=== PATIENT | male | born 1950 | race Caucasian/White ===

== ENCOUNTER 2018-07-02 19:27 | Observation (INO) ==
[2018-07-02] MEDS ORDERED: Pantoprazole Inj 40 MG Vial IV.PUSH ONE (20:03)
[2018-07-02] MEDS ORDERED: Sod Chloride 0.9% Inj 1,000 ML IV.SIG ONE (20:03)
--- NOTE | 2018-07-02 20:17 | ED ---
HPI General Chief complaint: Nausea/Vomiting/Diarrhea Stated complaint: vomitting Time Seen by Provider: 07/02/18 19:54 Source: patient and RN notes reviewed Mode of arrival: ambulatory Limitations: no limitations History of Present Illness HPI Narrative: 68-year-old male presents to the emergency department for evaluation of vomiting. Patient states he went out to eat with his daughter who he has not seen for several years. He was eating a blooming onion and steak and felt back when his symptoms occurred. He states that he felt like he got food stuck in his throat and was able to get it up. However, since then, he has been vomiting innumerable times. Patient reports associated midsternal pain. Current pain is 5/10. Patient reports history of hypertension, A. fib status post cardiac ablation. Takes metoprolol, aspirin, Celebrex. Patient denies any abdominal pain. No diarrhea or constipation. Moderate severity. MD complaint: Reports vomiting Onset (ago): hour(s) Description of Vomiting: watery Description of Diarrhea: none Associated Abdominal Pain: No Severity: moderate Severity scale (1-10): 5 Pain Consistency: constant Relieving factors: none Exacerbating factors: none Associated symptoms: Reports chest pain and nausea/vomiting; Denies myalgias, cough, diaphoresis, fever/chills, headaches, loss of appetite, malaise, rash, dysuria, shortness of breath, syncope, weakness, decreased urine output, fecal incontinence, tenesmus, altered mental status, anxiety, fatigue, bloating, numbness, tinnitus, palpitation and change in vision Related Data Home Medications Medication Instructions Recorded Confirmed aspirin [Aspir-81] 81 mg PO DAILY 07/02/18 07/02/18 celecoxib [Celebrex] 200 mg PO BID 07/02/18 07/02/18 metoprolol tartrate 50 mg PO BID 07/02/18 07/02/18 Allergies Allergy/AdvReac Type Severity Reaction Status Date / Time No Known Allergies Allergy Verified 07/02/18 19:40 Review of Systems ROS: all other systems reviewed are negative [facility] Social History Social History Substance History: No History of Abuse Second Hand Smoke Exposure: No Smoking Status: Never smoker How Often Do You Have a Drink Containing Alcohol: Never Recent Travel in [facility] within the Last 8 Weeks: No Recent Out of Country Travel within the Last 8 Weeks: No Immunization History Tetanus Immunization: <5 Years Exam Narrative Exam Narrative: GENERAL: Well-nourished, well-developed male patient, afebrile SKIN: Focused skin assessment warm/dry. HEAD: Normocephalic. Atraumatic EYES: No scleral icterus. No injection or drainage. NECK: Supple, trachea midline. No JVD or lymphadenopathy. CARDIOVASCULAR: Regular rate and rhythm without murmurs, gallops, or rubs. RESPIRATORY: Breath sounds equal bilaterally. No accessory muscle use. Lung sounds are clear to auscultation GASTROINTESTINAL: Abdomen soft, non-tender, nondistended. MUSCULOSKELETAL: No cyanosis, or edema. BACK: Nontender without obvious deformity. No CVA tenderness. Course Initial Documented Vital Signs Temperature 98.2 F 07/02/18 19:40 Pulse Rate 82 07/02/18 19:40 Respiratory Rate 23 07/02/18 19:40 Blood Pressure 170/99 H 07/02/18 19:40 Pulse Oximetry 98 07/02/18 19:40 Last Documented Vital Signs Temperature 97.4 F L 07/03/18 12:00 Pulse Rate 78 07/03/18 12:00 Respiratory Rate 16 07/03/18 12:00 Blood Pressure 120/77 07/03/18 12:00 Pulse Oximetry 96 07/03/18 12:00 Medical Decision Making DARIN Attestation DARIN supervised visit: Yes Attestation: I, Dr. Leyva, have reviewed the advance practice practitioner's documentation and am in agreement, met with the patient face to face, made the diagnosis, and the medical decision making was done by me. *My assessment and Findings: Esophageal food bolus obstruction MDM Narrative Medical decision making narrative: 68-year-old male presents to the emergency department for evaluation for innumerable episodes of vomiting after getting food stuck in his throat. Patient states he has had this happen before, but usually resolves by now. IV access obtained. EKG, CBC, CMP, magnesium, CK, troponin, chest x-ray are ordered and pending. Patient is given normal saline 1 L IV bolus, Zofran 4 mg IV, Protonix 40 mg IV, glucagon 2 mg IV. EKG shows sinus rhythm, heart rate 79, no acute ST changes. CBC shows no acute abnormality. CMP shows no acute abnormality. Magnesium is 1.9. CK is 65. Troponin is less than 0.02. Chest x-ray showsn o acute abnormality or significant interval change. I gave the patient some water after above meds. However, he immediately vomited it up. Exam is consistent with esophageal food bolus obstruction. GI is paged. I spoke to ANSON Haddad, who would like patient to be admitted, remain n.p.o. and he will scope the patient in the morning. Medical Screen Exam Complete: Yes Emergency Medical Condition: Yes Differential Diagnosis Differential Diagnosis: esophageal obstruction vs. GERD vs. gastroenteritis vs. dehydration vs. ACS Medical Records Medical records reviewed: Yes I reviewed the patient's medical records. Lab Data Result diagrams: 07/02/18 20:19 07/02/18 20:19 Lab Results 07/02/18 07/02/18 Range/Units 20:19 20:19 WBC 6.4 (4.0-11.0) th/mm3 RBC 5.47 (4.50-5.90) mil/mm3 Hgb 17.0 (13.0-17.0) gm/dL Hct 45.9 (39.0-51.0) % MCV 83.9 (80.0-100.0) fL MCH 31.1 (27.0-34.0) pg MCHC 37.1 H (32.0-36.0) % RDW 13.9 (11.6-17.2) % Plt Count 160 (150-450) th/mm3 MPV 7.9 (7.0-11.0) fL Prelim Diff (Auto) Slide review pending Neut % (Auto) 72.3 H (16.0-70.0) % Lymph % (Auto) 17.0 (9.0-44.0) % Jefferson % (Auto) 7.6 (0.0-8.0) % Eos % (Auto) 2.7 (0.0-4.0) % Baso % (Auto) 0.4 (0.0-2.0) % Neut # (Auto) 4.6 (1.8-7.7) th/mm3 Lymph # (Auto) 1.1 (1.0-4.8) th/mm3 Jefferson # (Auto) 0.5 (0.0-0.9) th/mm3 Eos # (Auto) 0.2 (0.0-0.4) th/mm3 Baso # (Auto) 0.0 (0.0-0.2) th/mm3 WBC Differential . Diff Scan Auto diff confirmed Differential Comment . Sodium 138 (136-145) meq/L Potassium 4.2 (3.5-5.1) meq/L Chloride 106 (98-107) meq/L Carbon Dioxide 27.2 (21.0-32.0) meq/L Anion Gap 5 (5-15) meq/L BUN 16 (7-18) mg/dL Creatinine 0.87 (0.60-1.30) mg/dL Estimated GFR 88 L (>89) mL/min Random Glucose 115 H (74-106) mg/dL Calcium 9.0 (8.5-10.1) mg/dL Magnesium 1.9 (1.5-2.5) mg/dL Total Bilirubin 3.0 H (0.2-1.0) mg/dL AST 21 (15-37) U/L ALT 27 (12-78) U/L Alkaline Phosphatase 81 (45-117) U/L Total Creatine Kinase 65 (39-308) U/L Troponin I Less than 0.02 L (0.02-0.05) ng/mL Total Protein 7.5 (6.4-8.2) g/dL Albumin 4.2 (3.4-5.0) g/dL Lipase 49 L (73-393) U/L Imaging Data Radiologist's impression: Chest X-Ray 07/02/18 20:03 CONCLUSION: 1. No acute abnormality or significant interval change. Discharge Plan Discharge Disposition Patient Disposition: 30 Still Patient Discharge Condition Condition: Stable Discharge Order Discharge Orders: Discharge Order (Routine); Ordered 07/03/18 Ordered By: Ligia Bonds ED Use Only Admit Order (Routine); Ordered 07/02/18 Ordered By: Estelle Ortiz Discharge Details Diagnosis: Acute esophageal obstruction Physicians Team ED Provider: Bhupendra Leyva ED Midlevel Provider: Estelle Ortiz Primary Care Provider: Ben Maxwell V Attending Provider: Lacie Escobar Other Providers: Souleymane Comer ; Roderick Sanabria V Status ED Status: Left Department Discharge Information Discharge Date/Time: 07/02/18 23:30
--- NOTE | 2018-07-02 20:26 | XR ---
EXAM DATE: 07/02/2018 8:21 PM EST AGE/SEX: 68 years / Male INDICATIONS: Chest pressure CLINICAL DATA: This is the patient's initial encounter. Patient reports that signs and symptoms have been present for 1 day and indicates a pain score of 0/10. MEDICAL/SURGICAL HISTORY: None. None. COMPARISON: [facility], CHEST SINGLE AP, 02/20/2016. . FINDINGS: No significant new focal pleural or parenchymal opacities. The cardiomediastinal contours are unremar kable. Osseous structures are intact. CONCLUSION: 1. No acute abnormality or significant interval change. Electronically signed by: Ed Covarrubias MD 07/02/2018 8:24 PM EST
[2018-07-02 20:28] LABS: Baso % (Auto) 0.4 % (0.0-2.0); Eos # (Auto) 0.2 th/mm3 (0.0-0.4); Eos % (Auto) 2.7 % (0.0-4.0); Hematocrit 45.9 % (39.0-51.0); Lymph # (Auto) 1.1 th/mm3 (1.0-4.8); Mean Corpuscular Hemoglobin 31.1 pg (27.0-34.0); Mean Corpuscular Volume 83.9 fL (80.0-100.0); Mean Platelet Volume 7.9 fL (7.0-11.0); Mono # (Auto) 0.5 th/mm3 (0.0-0.9); Mono % (Auto) 7.6 % (0.0-8.0); Neut # (Auto) 4.6 th/mm3 (1.8-7.7); Neut % (Auto) 72.3 % (16.0-70.0); Platelet Count 160 th/mm3 (150-450); Red Blood Count 5.47 mil/mm3 (4.50-5.90); Red Cell Distribution Width 13.9 % (11.6-17.2); White Blood Count 6.4 th/mm3 (4.0-11.0)
[2018-07-02 20:39] LABS: Mean Corpuscular HGB Conc 37.1 % (32.0-36.0)
[2018-07-02 20:57] LABS: Albumin 4.2 g/dL (3.4-5.0); Anion Gap 5 meq/L (5-15); Aspartate Aminotransferase 21 U/L (15-37); Blood Urea Nitrogen 16 mg/dL (7-18); Carbon Dioxide 27.2 meq/L (21.0-32.0); Chloride 106 meq/L (98-107); Glomerular Filtration Rate 88 mL/min (>89); Glucose,Random 115 mg/dL (74-106); Lipase 49 U/L (73-393); Magnesium 1.9 mg/dL (1.5-2.5); Potassium 4.2 meq/L (3.5-5.1); Sodium 138 meq/L (136-145)
[2018-07-02 20:58] LABS: Alanine Aminotransferase 27 U/L (12-78)
[2018-07-02 21:02] LABS: Alkaline Phosphatase 81 U/L (45-117); Total Protein 7.5 g/dL (6.4-8.2)
[2018-07-02 21:08] LABS: Creatine Kinase 65 U/L (39-308)
[2018-07-02] MEDS ORDERED: Bisacodyl 10 MG Supp RECTAL PRN (22:34)
[2018-07-02] MEDS ORDERED: Morphine Sulfate Inj 2 MG/ML Vial IV.PUSH PRN (22:34)
--- NOTE | 2018-07-02 22:35 | P.HPIM ---
History of Present Illness Primary Care Physician: Ben Maxwell MD History of Present Illness: This is a 68-year-old male with a PMH of HTN and A. fib s/p Ablation who presented to the ER w/ c/o vomiting after having dinner. [facility] had steak and a blooming onion, followed by sensation of something stuck in his throat, has had ongoing nausea/vomiting since then w/ no relief. Reports h/o similar symptoms which usually resolve after few episodes of vomiting. On arrival, BP 170/99, HR 82, O2 sat 98% on RA , Afebrile. Chemistry unremarkable except for GFR 88. Troponin negative. CXR with no acute findings. Dr. Wisdom consulted, plan is for EGD in am. - Diagnosis (1) Acute esophageal obstruction (2) Intractable nausea and vomiting Review of Systems PAST FAMILY HISTORY: Reviewed. No h/o DM or CAD All other systems reviewed negative except as stated in HPI PMFSH - History History Provided By: Patient - Medical History Medical History: Medical History (Last Reviewed 07/02/18 @ 19:53 by Queta Bonds) Arthritis Hypertension - Surgical History Surgical History: Surgical History (Last Reviewed 07/02/18 @ 19:53 by Queta Bonds) S/P ablation of atrial fibrillation - Tobacco History Smoking Status: Never smoker - Alcohol History How Often Do You Have a Drink Containing Alcohol: Never - Substance Use History Substance History: No History of Abuse - Substance Use Type Alcohol Status: Sustained Remission - Travel History Recent Travel in the [place] Within the Last 8 Weeks: No Recent Travel Out of the Country Within the Last 8 Weeks: No - Immunization History Tetanus Immunization: <5 Years Medications and Allergies Active Medications: Active Medications Sodium Chloride (Ns Flush) 2 ml IV.FLUSH UNSCH PRN PRN Reason: FLUSH AFTER USING IV ACCESS Allergies Allergy/AdvReac Type Severity Reaction Status Date / Time No Known Allergies Allergy Verified 07/02/18 19:40 Home Medications Medication Instructions Recorded Confirmed Type aspirin [Aspir-81] 81 mg PO DAILY 07/02/18 07/02/18 History celecoxib [Celebrex] 200 mg PO BID 07/02/18 07/02/18 History metoprolol tartrate 50 mg PO BID 07/02/18 07/02/18 History Exam Vital signs: Vital Signs 07/02/18 19:40 07/02/18 20:44 07/02/18 20:45 Temperature 98.2 F Pulse Rate 82 Respiratory Rate 23 Blood Pressure 170/99 H 158/98 H Pulse Oximetry 98 98 Intake & Output 07/02/18 07/02/18 07/03/18 06:59 18:59 06:59 Weight 120.202 kg Narrative: PE: GENERAL: Extremely pleasant middle-aged white male in no acute distress. at bedside. SKIN: Focused skin assessment warm and dry. HEENT: PERRLA, EOMI. No scleral icterus or conjunctival pallor. No lid lag or facial droop. CARDIOVASCULAR: Regular rate and rhythm. No obvious murmurs to auscultation. No chest tenderness to palpation. RESPIRATORY: No obvious rhonchi or wheezing. Clear to auscultation. Breath sounds equal bilaterally. GASTROINTESTINAL: Abdomen soft, non-tender, nondistended. BS normal. MUSCULOSKELETAL: Extremities without clubbing, cyanosis, or edema. No obvious deformities. NEUROLOGICAL: Awake, alert and oriented x4. No focal neurologic deficits. Moving both upper and lower extremities spontaneously. PSYCHIATRIC: Appropriate mood and affect. Insight and judgment normal. Results - Labs CBC & Chem 7: 07/02/18 20:19 07/02/18 20:19 Labs: Short CBC 07/02/18 Range/Units 20:19 WBC 6.4 (4.0-11.0) th/mm3 Hgb 17.0 (13.0-17.0) gm/dL Hct 45.9 (39.0-51.0) % Plt Count 160 (150-450) th/mm3 [facility] 07/02/18 20:19 Sodium 138 Potassium 4.2 Chloride 106 Carbon Dioxide 27.2 BUN 16 Creatinine 0.87 Calcium 9.0 Cardiac Enzymes 07/02/18 Range/Units 20:19 Total Creatine Kinase 65 (39-308) U/L Troponin I Less than 0.02 L (0.02-0.05) ng/mL Liver Function 07/02/18 Range/Units 20:19 Total Bilirubin 3.0 H (0.2-1.0) mg/dL AST 21 (15-37) U/L ALT 27 (12-78) U/L Alkaline Phosphatase 81 (45-117) U/L Albumin 4.2 (3.4-5.0) g/dL - Imaging Impressions Chest X-Ray 07/02/18 20:03 CONCLUSION: 1. No acute abnormality or significant interval change. Caprini VTE Risk Assessment Caprini VTE Risk Assessment: No/Low Risk (score <= 1) Caprini Risk Assessment Model: Point Value = 1 Point Value = 2 Point Value = 3 Point Value = 5 Age 41-60 Minor surgery BMI > 25 kg/m2 Swollen legs Varicose veins or History of unexplained or recurrent spontaneous Oral contraceptives or hormone replacement Sepsis (< 1 month) Serious lung disease, including pneumonia (< 1 month) Abnormal pulmonary function Acute myocardial infarction Congestive heart failure (< 1 month) History of inflammatory bowel disease Medical patient at bed rest Age 61-74 Arthroscopic surgery Major open surgery (> 45 min) Laparoscopic surgery (> 45 min) Malignancy Confined to bed (> 72 hours) Immobilizing plaster cast Central venous access Age >= 75 History of VTE Family history of VTE Factor V Leiden Prothrombin [id number] Lupus anticoagulant Anticardiolipin antibodies Elevated serum homocysteine Heparin-induced thrombocytopenia Other congenital or acquired thrombophilia Stroke (< 1 month) Elective arthroplasty Hip, pelvis, or leg fracture Acute spinal cord injury (< 1 month) Prophylaxis Regimen: Total Risk Factor Score Risk Level Prophylaxis Regimen 0-1 Low Early ambulation 2 Moderate Order ONE of the following: *Sequential Compression Device (SCD) *Heparin 5000 units SQ BID 3-4 Higher Order ONE of the following medications: *Heparin 5000 units SQ TID *Enoxaparin/Lovenox 40 mg SQ daily (WT < 150 kg, CrCl > 30 mL/min) *Enoxaparin/Lovenox 30 mg SQ daily (WT < 150 kg, CrCl > 10-29 mL/min) *Enoxaparin/Lovenox 30 mg SQ BID (WT < 150 kg, CrCl > 30 mL/min) AND/OR *Sequential Compression Device (SCD) 5 or more Highest Order ONE of the following medications: *Heparin 5000 units SQ TID (Preferred with Epidurals) *Enoxaparin/Lovenox 40 mg SQ daily (WT < 150 kg, CrCl > 30 mL/min) *Enoxaparin/Lovenox 30 mg SQ daily (WT < 150 kg, CrCl > 10-29 mL/min) *Enoxaparin/Lovenox 30 mg SQ BID (WT < 150 kg, CrCl > 30 mL/min) AND *Sequential Compression Device (SCD) Assessment and Plan - Assessment (1) Acute esophageal obstruction Code(s): K22.2 - Esophageal obstruction Status: Acute (2) Intractable nausea and vomiting Code(s): R11.2 - Nausea with vomiting, unspecified Status: Acute - Plan A/P: 1. Acute Esophageal Obstruction: from food bolus following meal, h/o similar symptoms in the past however reports episodes usually resolve after vomiting. Dr. Wisdom consulted, plan is for EGD in am, NPO, IVF, antiemetics as needed. 2. Intractable NV: secondary to above, s/p Zofran in ER, will add Compazine, NPO. 3. DVT Prophylaxis: SCD/Teds 4. Social work for d/c planning as needed. 5. Case discussed w/ ER physician at length, labs/records/imaging reviewed by me.
[2018-07-02] MEDS: Sod Chloride 0.9% Inj 1,000 ML IV.CONT SCH (23:33)
[2018-07-03] MEDS ORDERED: Senna/Docusate Sodium 8.6/50 MG Tablet PO SCH (09:00)
--- NOTE | 2018-07-03 09:28 | P.CONGI ---
History of Present Illness Consult date: 07/03/18 Consult reason: Dysphagia food bolus Chief complaint: dysphagia, food bolus History of Present Illness: This patient is a 68-year-old male with past medical history of hypertension and atrial fibrillation. Patient presented to the ER at [facility] complaint of vomiting after having dinner. Upon consultation, patient states that he had 2 recent episodes of difficulty swallowing solid foods. On Tuesday patient states that bread felt stuck in his throat after eating a sandwich and more recently on Tuesday patient reported eating at a restaurant. On Tuesday patient states he ate fried onions with salad and steak. After having a few pieces of food he states he started gasping. Patient states he went to the bathroom and started vomiting. At this time he is able to speak clearly in complete sentences, swallow saliva. Patient states similar episode 20 years ago where he underwent an EGD after eating a hotdog. Patient denies ever having had a colonoscopy in the past and states he has regular bowel movements with no bleeding. Patient denies use of tobacco or alcohol products. States family history significant for his mother having esophageal spasms. Our service has been consulted to evaluate patient for esophageal food bolus. Review of Systems All other systems reviewed negative except as stated in HPI PMFSH - History History Provided By: Patient - Medical History Medical History: Medical History (Last Reviewed 07/02/18 @ 19:53 by Queta Bonds) Arthritis Hypertension - Surgical History Surgical History: Surgical History (Last Reviewed 07/02/18 @ 19:53 by Queta Bonds) S/P ablation of atrial fibrillation - Tobacco History Second Hand Smoke Exposure: No Smoking Status: Never smoker - Alcohol History How Often Do You Have a Drink Containing Alcohol: Never - Substance Use History Substance History: No History of Abuse - Substance Use Type Alcohol Status: Sustained Remission - Travel History Recent Travel in the [place] Within the Last 8 Weeks: No Recent Travel Out of the Country Within the Last 8 Weeks: No - Immunization History Tetanus Immunization: <5 Years Medications and Allergies Active Medications: Active Medications Al Hydroxide/Mg Hydroxide (Milk Of Magnesia Liq) 30 ml PO Q12H PRN PRN Reason: Mild Constipation Bisacodyl (Dulcolax Supp) 10 mg RECTAL DAILY PRN PRN Reason: SEVERE CONSITIPATION Sodium Chloride (Ns Inj) 1,000 mls @ 100 mls/hr IV.CONT .Q10H [facility] Last Admin: 07/02/18 23:33 Dose: 100 mls/hr Lactulose (Lactulose Liq) 30 ml PO DAILY PRN PRN Reason: SEVERE CONSITIPATION Morphine Sulfate (Morphine Inj) 2 mg IV.PUSH Q4H PRN PRN Reason: PAIN 6-10 Ondansetron HCl (Zofran Inj) 4 mg IV.PUSH Q6H PRN PRN Reason: NAUSEA OR VOMITING Prochlorperazine Edisylate (Compazine Inj) 10 mg IV.PUSH Q6H PRN PRN Reason: NAUSEA/VOMITING Last Admin: 07/02/18 23:30 Dose: 10 mg Senna/Docusate Sodium (Olivia-Colace) 1 tab PO BID [facility] Last Admin: 07/03/18 09:06 Dose: Not Given Sennosides (Senokot) 17.2 mg PO Q12H PRN PRN Reason: Moderate Constipation Sodium Chloride (Ns Flush) 2 ml IV.FLUSH BID [facility] Last Admin: 07/03/18 09:06 Dose: Not Given Sodium Chloride (Ns Flush) 2 ml IV.FLUSH PRN PRN PRN Reason: FLUSH AFTER USING IV ACCESS Allergies Allergy/AdvReac Type Severity Reaction Status Date / Time No Known Allergies Allergy Verified 07/02/18 19:40 Home Medications Medication Instructions Recorded Confirmed Type aspirin [Aspir-81] 81 mg PO DAILY 07/02/18 07/02/18 History celecoxib [Celebrex] 200 mg PO BID 07/02/18 07/02/18 History metoprolol tartrate 50 mg PO BID 07/02/18 07/02/18 History Exam Vital signs: Vital Signs 07/02/18 19:40 07/02/18 20:44 07/02/18 20:45 Temperature 98.2 F Pulse Rate 82 Respiratory Rate 23 Blood Pressure 170/99 H 158/98 H Pulse Oximetry 98 98 07/02/18 23:58 07/03/18 04:00 07/03/18 08:00 Temperature 98.4 F 98.0 F 96.8 F L Pulse Rate 80 71 78 Respiratory Rate 16 16 16 Blood Pressure 134/83 126/79 124/85 Pulse Oximetry 96 95 98 Intake & Output 07/02/18 07/03/18 07/03/18 18:59 06:59 18:59 Intake Total 1000 / 1000 Output Total 0 / 0 Balance 1000 / 1000 Weight 117.934 kg Intake: IV 1000 / 1000 NS Inj 1,000 ML @ Wide Open IV. 1000 / 1000 SIG BOLUS ONE Rx#:[id number] Oral 0 / 0 Output: Urine 0 / 0 Other: Date of Last Bowel Movement 07/02/18 Weight On Admission 120.202 kg - Constitutional no acute distress - Routine HEENT Exam Head: Present: normocephalic - Routine Neck Exam Present: supple - Routine Respiratory Exam Present: CTA bilaterally. Absent: accessory muscle use - Routine Abdominal Exam Present: soft, normoactive bowel sounds. Absent: tenderness, distended, guarding, firm - Routine Skin Exam Present: dry, warm - Routine Neurological Exam Present: alert - Routine Psychiatric Exam Present: normal affect, cooperative Results - Labs CBC & Chem 7: 07/02/18 20:19 07/02/18 20:19 Labs: Laboratory Results - last 24 hr 07/02/18 07/02/18 20:19 20:19 WBC 6.4 RBC 5.47 Hgb 17.0 Hct 45.9 MCV 83.9 MCH 31.1 MCHC 37.1 H RDW 13.9 Plt Count 160 MPV 7.9 Prelim Diff (Auto) Slide review pending Neut % (Auto) 72.3 H Lymph % (Auto) 17.0 Tift % (Auto) 7.6 Eos % (Auto) 2.7 Baso % (Auto) 0.4 Neut # (Auto) 4.6 Lymph # (Auto) 1.1 Tift # (Auto) 0.5 Eos # (Auto) 0.2 Baso # (Auto) 0.0 WBC Differential . Diff Scan Auto diff confirmed Differential Comment . Sodium 138 Potassium 4.2 Chloride 106 Carbon Dioxide 27.2 Anion Gap 5 BUN 16 Creatinine 0.87 Estimated GFR 88 L Random Glucose 115 H Calcium 9.0 Magnesium 1.9 Total Bilirubin 3.0 H AST 21 ALT 27 Alkaline Phosphatase 81 Total Creatine Kinase 65 Troponin I Less than 0.02 L Total Protein 7.5 Albumin 4.2 Lipase 49 L - Imaging Impressions Chest X-Ray 07/02/18 20:03 CONCLUSION: 1. No acute abnormality or significant interval change. Assessment and Plan (1) Acute esophageal obstruction Status: Acute Code(s): K22.2 - Esophageal obstruction - Plan This patient is a 68-year-old male with past medical history of hypertension and atrial fibrillation. Patient presented to the ER at [facility] complaint of vomiting after having dinner. Upon consultation, patient states that he had 2 recent episodes of difficulty swallowing solid foods. On Tuesday patient states that bread felt stuck in his throat after eating a sandwich and more recently on Tuesday patient reported eating at a restaurant. On Tuesday patient states he ate fried onions with salad and steak. After having a few pieces of food he states he started gasping. Patient states he went to the bathroom and started vomiting. At this time he is able to speak clearly in complete sentences, swallow saliva. Patient states similar episode 20 years ago where he underwent an EGD after eating a hotdog. Patient denies ever having had a colonoscopy in the past and states he has regular bowel movements with no bleeding. Patient denies use of tobacco or alcohol products. States family history significant for his mother having esophageal spasms. Our service has been consulted to evaluate patient for esophageal food bolus. Esophageal food bolus Difficulty swallowing Patient endorses 2 recent episodes of difficulty swallowing with possible esophageal food bolus. Most recently Tuesday patient states he was eating steak , fried onions and salad when he is began to gasp. Patient states he attempted multiple episodes of vomiting to clear food. On consultation, patient able to speak in complete sentences and swallow saliva. No respiratory distress. Plan -Consent obtained for EGD -EGD today -Encourage patient to chew food slowly -Encourage patient to take small bites -Supportive care -Further recommendations to follow based on patient's status and findings This patient has been seen by myself and Dr. Sanabria and this note is written on his behalf - Attending Attestation Dr. Sanabria
[2018-07-03] MEDS: Sod Chloride 0.9% Inj 1,000 ML IV.CONT SCH (09:29)
[2018-07-03] MEDS ORDERED: Sodium Chlor 0.9% Inj 500 ML IV.CONT ONE (10:15)
[2018-07-03] MEDS ORDERED: Chlorhexidine Gluconate 2% 1 Pack (2 Cloths) TOPICAL ONE (10:15)
[2018-07-03] MEDS ORDERED: Metoprolol Tartrate 25 MG Tablet PO ONE (10:15)
[2018-07-03] MEDS ORDERED: Succinylcholine Inj 100 MG/5 ML Syringe IV.PUSH ONE (10:27)
[2018-07-03] MEDS ORDERED: Lidocaine PF 1% Inj 5 ML Syringe OTHER ONE (10:27)
--- NOTE | 2018-07-03 10:46 | GIPROC ---
[facility] [address] [facility]. [facility], [address] EGD PROCEDURE REPORT EXAM DATE: 07/03/2018 PATIENT NAME: Emery Gordillo MR #: [id number] BIRTHDATE: 1950 ATTENDING: Roderick Sanabria MD ORDER #: [id number] [employer]CH[employer]IC TIN CANS: Destiney Flores and Margaret Hamlin STATUS: inpatient INDICATIONS: The patient is a 68 yr old male here for an EGD due to dysphagia and FB stuck in the chest PROCEDURE PERFORMED: EGD, diagnostic MEDICATIONS: Per Anesthesia and None. TOPICAL ANESTHETIC: none CONSENT: The patient understands the risks and benefits of the procedure and understands that these risks include, but are not limited to: sedation, allergic reaction, infection, perforation and/or bleeding. Alternative means of evaluation and treatment include, among others: physical exam, x-rays, and/or surgical intervention. The patient elects to proceed with this endoscopic procedure. medical equipment was checked for proper function. Hand hygiene and appropriate measures for infection prevention was taken. After the risks, benefits and alternatives of the procedure were thoroughly explained, Informed consent was verified, confirmed and timeout was successfully executed by the treatment team. The patient was anesthetized with topical anesthesia and the Pentax EG-[id number] endoscope was introduced through the mouth and advanced to the second portion of the duodenum. Retroflexed views revealed no abnormalities The gastroscope was then slowly withdrawn and removed. ESOPHAGUS: There was LA Class C esophagitis noted. 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 The stricture was traversable. ADVERSE EVENTS: There were no complications. IMPRESSIONS: 1. There was LA Class C esophagitis noted 2. 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 Retroflexed views revealed no abnormalities RECOMMENDATIONS: Continue PPI PATIENT CONDITION: stable DISPOSITION: Inpatient REPEAT EXAM: Return as needed for EGD with dilatation in 2- weeks as outpatient Roderick Sanabria MD eSigned: Roderick Sanabria MD 07/03/2018 10:46 AM cc: PATIENT NAME: Emery Gordillo MR#: [id number]
[2018-07-03 11:33] VITALS: O2SAT 96
[2018-07-03] MEDS ORDERED: fentaNYL Citrate Inj 100 MCG/2 ML Ampul ONE (12:25)
[2018-07-03 12:47] VITALS: BP 120/77; PULSE 78; RESP 16; TEMP 97.4
--- NOTE | 2018-07-03 14:19 | P.PN ---
Subjective Interval history: Patient is seen lying in bed. He has scheduled EGD today. Tells me that he has not had any trouble swallowing saliva and his nausea and vomiting has subsided. Currently n.p.o. Denies any history of stricture but has had EGD for similar problem in past. Physical Exam Vital signs: Vital Signs 07/02/18 19:40 07/02/18 20:44 07/02/18 20:45 Temperature 98.2 F Pulse Rate 82 Respiratory Rate 23 Blood Pressure 170/99 H 158/98 H Pulse Oximetry 98 98 07/02/18 23:58 07/03/18 04:00 07/03/18 08:00 Temperature 98.4 F 98.0 F 96.8 F L Pulse Rate 80 71 78 Respiratory Rate 16 16 16 Blood Pressure 134/83 126/79 124/85 Pulse Oximetry 96 95 98 07/03/18 10:50 07/03/18 11:00 07/03/18 11:05 Temperature 98.1 F Pulse Rate 82 81 Respiratory Rate 17 18 Blood Pressure 135/94 H 111/77 Pulse Oximetry 95 96 96 07/03/18 11:15 07/03/18 11:30 07/03/18 11:45 Temperature 98.1 F Pulse Rate 77 78 76 Respiratory Rate 18 19 18 Blood Pressure 115/78 114/78 117/80 Pulse Oximetry 97 96 96 07/03/18 12:00 Temperature 97.4 F L Pulse Rate 78 Respiratory Rate 16 Blood Pressure 120/77 Pulse Oximetry 96 Intake & Output 07/02/18 07/03/18 07/03/18 18:59 06:59 18:59 Intake Total 1000 / 1000 800 / 800 Output Total 0 / 0 Balance 1000 / 1000 800 / 800 Weight 117.934 kg Intake: IV 1000 / 1000 NS Inj 1,000 ML @ Wide Open IV. 1000 / 1000 SIG BOLUS ONE Rx#:[id number] Oral 0 / 0 Anesthesia Amount 800 / 800 Output: Urine 0 / 0 Other: Date of Last Bowel Movement 07/02/18 07/02/18 Weight On Admission 120.202 kg Narrative: GENERAL: Well-nourished, well-developed adult male in no obvious distress. SKIN: Warm and dry. HEAD: Atraumatic. Normocephalic. CARDIOVASCULAR: Regular rate and rhythm. RESPIRATORY: No accessory muscle use. Clear to auscultation. Breath sounds equal bilaterally. GASTROINTESTINAL: Abdomen soft, non-tender, non-distended. Positive bowel sounds. MUSCULOSKELETAL: Extremities without clubbing, cyanosis, or edema. No obvious deformities. NEUROLOGICAL: Awake and alert. No obvious cranial nerve deficits. Motor grossly within normal limits. Normal speech. PSYCHIATRIC: Appropriate mood and affect; insight and judgment good. Results - Labs CBC & Chem 7: 07/02/18 20:19 07/02/18 20:19 Laboratory Results - last 24 hr 07/02/18 07/02/18 20:19 20:19 WBC 6.4 RBC 5.47 Hgb 17.0 Hct 45.9 MCV 83.9 MCH 31.1 MCHC 37.1 H RDW 13.9 Plt Count 160 MPV 7.9 Prelim Diff (Auto) Slide review pending Neut % (Auto) 72.3 H Lymph % (Auto) 17.0 [place] % (Auto) 7.6 Eos % (Auto) 2.7 Baso % (Auto) 0.4 Neut # (Auto) 4.6 Lymph # (Auto) 1.1 [place] # (Auto) 0.5 Eos # (Auto) 0.2 Baso # (Auto) 0.0 WBC Differential . Diff Scan Auto diff confirmed Differential Comment . Sodium 138 Potassium 4.2 Chloride 106 Carbon Dioxide 27.2 Anion Gap 5 BUN 16 Creatinine 0.87 Estimated GFR 88 L Random Glucose 115 H Calcium 9.0 Magnesium 1.9 Total Bilirubin 3.0 H AST 21 ALT 27 Alkaline Phosphatase 81 Total Creatine Kinase 65 Troponin I Less than 0.02 L Total Protein 7.5 Albumin 4.2 Lipase 49 L - Imaging Impressions Chest X-Ray 07/02/18 20:03 CONCLUSION: 1. No acute abnormality or significant interval change. Assessment and Plan - Assessment (1) Acute esophageal obstruction Code(s): K22.2 - Esophageal obstruction Status: Acute (2) Intractable nausea and vomiting Code(s): R11.2 - Nausea with vomiting, unspecified Status: Acute - Plan A/P: 1. Acute Esophageal Obstruction: from food bolus following meal, h/o similar symptoms in the past however reports episodes usually resolve after vomiting. - Dr. Wisdom consulted, plan is for EGD, NPO, IVF, antiemetics as needed. 2. Intractable NV: -secondary to above, s/p Zofran in ER, will add Compazine, NPO. DVT Prophylaxis: SCD/Teds Discharge planning: Will DC home once cleared by GI
--- NOTE | 2018-07-03 14:26 | P.DS ---
Date of admission: 07/02/18 22:35 Primary care physician: Ben Maxwell MD Attending physician on discharge: Lacie Escobar Anticipated date of discharge: 07/03/18 Brief History from admission: This is a 68-year-old male with a PMH of HTN and A. fib s/p Ablation who presented to the ER w/ c/o vomiting after having dinner. States [facility]/ his , had steak and a blooming onion, followed by sensation of something stuck in his throat, has had ongoing nausea/vomiting since then w/ no relief. Reports h/o similar symptoms which usually resolve after few episodes of vomiting. On arrival, BP 170/99, HR 82, O2 sat 98% on RA , Afebrile. Chemistry unremarkable except for GFR 88. Troponin negative. CXR with no acute findings. Dr. Wisdom consulted, plan is for EGD in am. DS: Diagnosis - Discharge Diagnosis (1) Acute esophageal obstruction Status: Resolved (2) Intractable nausea and vomiting Status: Resolved (3) Stricture esophagus Status: Resolved DS: Summary Hospital Course: Patient is a 68-year-old male admitted with acute Esophageal Obstruction: from food bolus following meal, h/o similar symptoms in the past however reports episodes usually resolve after vomiting. At admit was experiencing intractable NV secondary to above, resolved with Zofran and Compazine. EGD done 07/03/18 with stricture noted in distal esophagus; dilated. Recommended to have follow-up EGD for repeat dilation in 2 weeks. - Time Spent with Patient Total time spent providing and/or coordinating discharge services: Less than 30 minutes - Quality: VTE Deep Vein Thrombosis/Pulmonary Embolism Present on Admission: No Exam Vital signs: Vital Signs 07/02/18 19:40 07/02/18 20:44 07/02/18 20:45 Temperature 98.2 F Pulse Rate 82 Respiratory Rate 23 Blood Pressure 170/99 H 158/98 H Pulse Oximetry 98 98 07/02/18 23:58 07/03/18 04:00 07/03/18 08:00 Temperature 98.4 F 98.0 F 96.8 F L Pulse Rate 80 71 78 Respiratory Rate 16 16 16 Blood Pressure 134/83 126/79 124/85 Pulse Oximetry 96 95 98 07/03/18 10:50 07/03/18 11:00 07/03/18 11:05 Temperature 98.1 F Pulse Rate 82 81 Respiratory Rate 17 18 Blood Pressure 135/94 H 111/77 Pulse Oximetry 95 96 96 07/03/18 11:15 07/03/18 11:30 07/03/18 11:45 Temperature 98.1 F Pulse Rate 77 78 76 Respiratory Rate 18 19 18 Blood Pressure 115/78 114/78 117/80 Pulse Oximetry 97 96 96 07/03/18 12:00 Temperature 97.4 F L Pulse Rate 78 Respiratory Rate 16 Blood Pressure 120/77 Pulse Oximetry 96 Intake & Output 07/02/18 07/03/18 07/03/18 18:59 06:59 18:59 Intake Total 1000 / 1000 800 / 800 Output Total 0 / 0 Balance 1000 / 1000 800 / 800 Weight 117.934 kg Intake: IV 1000 / 1000 NS Inj 1,000 ML @ Wide Open IV. 1000 / 1000 SIG BOLUS ONE Rx#:[id number] Oral 0 / 0 Anesthesia Amount 800 / 800 Output: Urine 0 / 0 Other: Date of Last Bowel Movement 07/02/18 07/02/18 Weight On Admission 120.202 kg Narrative: GENERAL: Well-nourished, well-developed adult male in no obvious distress. SKIN: Warm and dry. HEAD: Atraumatic. Normocephalic. CARDIOVASCULAR: Regular rate and rhythm. RESPIRATORY: No accessory muscle use. Clear to auscultation. Breath sounds equal bilaterally. GASTROINTESTINAL: Abdomen soft, non-tender, non-distended. Positive bowel sounds. MUSCULOSKELETAL: Extremities without clubbing, cyanosis, or edema. No obvious deformities. NEUROLOGICAL: Awake and alert. No obvious cranial nerve deficits. Motor grossly within normal limits. Normal speech. PSYCHIATRIC: Appropriate mood and affect; insight and judgment good. Results Procedures completed during hospitalization: EGD 07/03/18 IMPRESSIONS: 1. There was LA Class C esophagitis noted 2. There was a short stricture in the distal esophagus 42 cm from the incisors 3. Retroflexed views revealed no abnormalities Labs on day of discharge: Labs from last 24 hours 07/02/18 07/02/18 20:19 20:19 WBC 6.4 RBC 5.47 Hgb 17.0 Hct 45.9 MCV 83.9 MCH 31.1 MCHC 37.1 H RDW 13.9 Plt Count 160 MPV 7.9 Prelim Diff (Auto) Slide review pending Neut % (Auto) 72.3 H Lymph % (Auto) 17.0 [place] % (Auto) 7.6 Eos % (Auto) 2.7 Baso % (Auto) 0.4 Neut # (Auto) 4.6 Lymph # (Auto) 1.1 [place] # (Auto) 0.5 Eos # (Auto) 0.2 Baso # (Auto) 0.0 WBC Differential . Diff Scan Auto diff confirmed Differential Comment . Sodium 138 Potassium 4.2 Chloride 106 Carbon Dioxide 27.2 Anion Gap 5 BUN 16 Creatinine 0.87 Estimated GFR 88 L Random Glucose 115 H Calcium 9.0 Magnesium 1.9 Total Bilirubin 3.0 H AST 21 ALT 27 Alkaline Phosphatase 81 Total Creatine Kinase 65 Troponin I Less than 0.02 L Total Protein 7.5 Albumin 4.2 Lipase 49 L - Impressions ITS Impressions Chest X-Ray 07/02/18 20:03 CONCLUSION: 1. No acute abnormality or significant interval change. Discharge Plan - Discharge Disposition Patient Disposition: 01 Discharge Home - Discharge Condition Condition: Stable - Discharge Order Discharge Orders: Discharge Order (Routine); Ordered 07/03/18 Ordered By: Ligia Bonds - Physicians Team Primary Care Provider: Ben Maxwell V Attending Provider: Lacie Escobar Other Providers: [employer] ; Roderick Sanabria MD
--- NOTE | 2018-07-03 20:10 | ECG ---
Date Performed: 07/02/2018 Time Performed: 20:13:02 PTAGE: 68 years EKG: Sinus rhythm MODERATE ST DEPRESSION ABNORMAL ECG PREVIOUS TRACING : 02/25/2016 05.18 Since the previous tracing, no significant change noted DOCTOR: Tahir Rondon Interpretating Date/Time 07/03/2018 20:02:31
== END 2018-07-03 16:24 | disposition home or self-care (01) ==
LOC: NEDA 19:27 → NEPD 19:27 → NEPFCDU 23:31
PROVIDERS: ADMIT Family Medicine; ATTEND Family Medicine